=== PATIENT | male | born 1945 | race Caucasian/White ===

== ENCOUNTER → 2020-11-10 13:17 | Outpatient (BNVA) | payer MEDICARE, SELFPAY | PROVIDERS: Family Provider Internal Medicine; PCP Internal Medicine; Visit Provider Nurse Practitioner Family | DX: R30.0 Dysuria (principal); N40.0 Benign prostatic hyperplasia without lower urinary tract symptoms; N30.00 Acute cystitis without hematuria; N40.1 Benign prostatic hyperplasia with lower urinary tract symptoms; R35.1 Nocturia | CPT/HCPCS: 81000; 81003; 84153 ==

== ENCOUNTER → 2020-12-04 08:34 | Outpatient (BNVA) | payer MEDICARE, SELFPAY | PROVIDERS: Family Provider Internal Medicine; PCP Internal Medicine; Referring Provider Internal Medicine; Visit Provider Urology | DX: R97.20 Elevated prostate specific antigen [PSA] (principal); R33.9 Retention of urine, unspecified; N40.1 Benign prostatic hyperplasia with lower urinary tract symptoms; N39.0 Urinary tract infection, site not specified | CPT/HCPCS: 81003; 84153 ==

== ENCOUNTER 2021-01-12 07:51 | Outpatient (CLI) | payer MEDICARE, SELFPAY ==
--- NOTE | 2021-01-12 08:09 | CT_ITS ---
WS: [id number] CT HEAD TECHNIQUE: Noncontrast CT of the head obtained from the skullbase to the vertex. CLINICAL INFORMATION: G44.309 - Post-traumatic headache, unspecified, not intractable COMPARISON: None. DLP: 925.[address] scans at [facility] use at least one of these dose optimization techniques: automat ed exposure control; mA and/or kV adjustment per patient size (includes targeted exams where dose is matched to clinical indication); or iterative reconstruction. FINDINGS: No evidence of intracranial hemorrhage or mass effect. Ventricular system and basal cisterns are haney nt. Mild small vessel changes with mild parenchymal volume loss. No extra-axial fluid collections. No evidence of mass or mass effect. Normal crespo-white differentiation. Paranasal sinuses and mastoid air cells are well aerated. .Normal visualized soft tissues. CT/CT head wo con* [id number] IMPRESSION: 1. No evidence of intracranial hemorrhage or mass effect. 2. Mild small vessel changes. Mild parenchymal volume loss. 3. No acute intracranial findings.
== END 2021-01-12 07:52 | disposition home or self-care (01) ==
LOC: RADWPI 07:55
PROVIDERS: PCP Internal Medicine; Visit Provider Internal Medicine
DX: G44.309 Post-traumatic headache, unspecified, not intractable (principal)
CPT/HCPCS: 70450

== ENCOUNTER → 2021-03-11 08:44 | Outpatient (BNVA) | payer MEDICARE, SELFPAY | PROVIDERS: PCP Internal Medicine; Visit Provider Urology | DX: N40.1 Benign prostatic hyperplasia with lower urinary tract symptoms (principal); R97.20 Elevated prostate specific antigen [PSA]; R33.9 Retention of urine, unspecified | CPT/HCPCS: 81003; G0103 ==

== ENCOUNTER 2021-05-18 15:54 | Outpatient (CLI) | payer MEDICARE, SELFPAY ==
--- NOTE | 2021-05-18 15:59 | XR_ITS ---
WS: [id number] Chest 2 views, 05/18/2021 Clinical Data: chest pain Comparison: PA and lateral chest, 04/20/2016. Findings: No nodules, masses or effusions are seen. The heart is normal. The pulmonary vascularity is not increased. No pneumonia or pneumothorax is seen. The diaphragms are flattened. XR/XR chest 2V* [id number] Impression: Hyperinflation.
== END 2021-05-18 15:55 | disposition home or self-care (01) ==
PROVIDERS: PCP Internal Medicine; Visit Provider Internal Medicine
DX: R07.9 Chest pain, unspecified (principal)
CPT/HCPCS: 71046

== ENCOUNTER 2021-06-01 08:08 | Outpatient (CLI) | payer MEDICARE, SELFPAY ==
--- NOTE | 2021-06-01 08:31 | ECG_ITS ---
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 Interpretive Statements NAME OF STUDY: LEXISCAN SESTAMIBI STRESS TEST INDICATION: [Chest Pain, ] Procedure: At the baseline, the blood pressure was 132/82mmHg with a heart rate of 51 bpm. The electrocardiogram showed sinus bradycardia, normal axis with normal ST and T's. The Lexiscan was infused over a period of 20 seconds. A total of 0.4 mg of Lexiscan was infused. The stress phase was continued for a total of 5 minutes. Heart rate was at the end of stress phase was 59 bpm and a blood pressure of 122/60 mmHg. The EKG at the peak infusion revealed since normal sinus rhythm with no significant ST-T wave changes. Sestamibi was injected 20 seconds after the Lexiscan infusion. Blood pressure at the end of recovery phase was 112/59 mmHg with a heart rate of 58 bpm. Conclusion: 1. Normal EKG response to Lexiscan infusion 2. No Lexiscan induced chest pain or cardiac arrhythmia. 3. Normal blood pressure and heart rate response. 4. Sestamibi/sestamibi perfusion scan pending; see separate report. Electronically Signed On 06-28-2021 12:39:56 CDT by Jhony Mann M.D. [id number]
[2021-06-01 08:32] VITALS: BMI 25.0
--- NOTE | 2021-06-01 08:32 | NMCV_ITS ---
NM nando perf SPECT r/s* [id number] Neo Collins Age: 75 Gender: M : 1945 Exam Date: 06/01/2021 08:32 Ordering Phys: Angel Galicia MD Technologist: MIREYA Gonzalez Exam Location: [facility] Indications: CHEST PAIN STRESS TEST Please see separate stress test report in [facility]any for full findings IMAGE PROTOCOL Rest/Stress 1 Lexiscan Day Radiopharmaceutical Dose (mCi) Administration Site Administered by Rest: Tc-99m 11.0 IV MIREYA Gonzalez Sestamibi Stress:Tc-99m 32.9 IV MIREYA Harper Sestamibi Rest: 01-Jun-2021 60 Discovery 630 Stress: 01-Jun-2021 30 Discovery 630 0.4mg Lexiscan. Images obtained in supine and prone position. SPECT RESULTS Technical Quality: Excellent Raw Data Analysis: Normal Image Corrections: Patient motion artifact - motion correction applied to rest and stress images. Summed Stress Score: 6 Summed Rest Score: 2 Summed Difference Score: 5 PERFUSION FINDINGS There is a moderate in size, mostly reversible inferior wall, reversible perfusion defect. This is consistent with small infarct with significant joni- infarct ischemia. TID ratio is elevated FUNCTIONAL RESULTS (calculated via Gated SPECT) Stress Image LV EF (%): 69 Stress EDV (mL):142 TID: 1.23 Stress ESV (mL):44 FUNCTIONAL FINDINGS: There is normal left ventricular systolic function. IMPRESSIONS 1. Abnormal myocardial perfusion imaging with small sized inferior wall infarct with significant joni-infarct ischemia. 2. TID ratio is elevated and is 1.23. Subendocardial ischemia/multivessel disease are possible 3. LV systolic function is normal Jhony Mann MD (Electronically Signed) Final Date: 01 June 2021 12:06 S
[2021-06-01] MEDS: regadenoson 0.4 Mg/5 ml Syringe IVP (10:15)
[2021-06-01 10:52] VITALS: BP 112/59; PULSE 56
== END 2021-06-01 08:09 | disposition home or self-care (01) ==
LOC: CDL 08:15
PROVIDERS: PCP Internal Medicine; Visit Provider Internal Medicine
DX: R07.9 Chest pain, unspecified (principal)
CPT/HCPCS: 78452; 93017; A9500; J2785

== ENCOUNTER → 2021-07-06 10:29 | Outpatient (BNVA) | payer MEDICARE, SELFPAY | PROVIDERS: PCP Internal Medicine; Referring Provider Internal Medicine; Visit Provider Internal Medicine | DX: R07.9 Chest pain, unspecified (principal); Z01.818 Encounter for other preprocedural examination; Z20.822 Contact with and (suspected) exposure to COVID-19 | CPT/HCPCS: 80048; 85025; 85610; 87635 ==

== ENCOUNTER 2021-07-10 05:55 | Outpatient (CLI) | payer MEDICARE, SELFPAY ==
[2021-07-10] VITALS (23 sets, daily range): BP systolic 100–140; BP diastolic 58–72; PULSE 42–52; RESP 5–25; TEMP 36.8; O2SAT 93–98; BMI 24.9
--- NOTE | 2021-07-10 06:00 | XACV_ITS ---
Ht: 201 cm Wt: 100 kg BSA: 2.37 m2 Gender: Male : 1945 Any Known Allergies: No known allergies Exam Priority: Routine Procedure(s): Procedure Description: Diagnostic procedure Procedure Description: Left Heart Catheterization Procedure Description: Left ventriculography Procedure Description: Coronary Angiography Diagnostic Cath Status: Elective Diagnostic Findings * Indication: Chest pain/abnormal stress test. * No disease noted in the Left Main, Left Anterior Descending, Right, or Circumflex coronary arteries. * Coronary angiography shows right dominance. Conclusions 1. No disease noted in the Left Main, Left Anterior Descending, Right, or Circumflex coronary arteries. 2. Normal left ventricular systolic function. Ejection fraction of 50%. Recommendations * Aggressive risk factor management. * Cardiology office follow-up appointment in 4 weeks. Interventional RX Recommendation: medical therapy and/or counseling Diagnostic RX Recommendation: medical therapy and/or counseling Ventriculography Ejection Fraction: 50.0 % Pressures Phase:Rest AO : 118 / 48 ( 75 ) @ 6:58:00 AM 119 / 53 ( 78 ) @ 6:58:00 AM LV : 125 / -11 / 11 @ 6:56:00 AM 124 / -10 / 10 @ 6:58:00 AM 125 / -10 / 10 @ 6:58:00 AM Valves Phase:DefaultPhase AV : 3.0 @ 8:11:05 AM AV Mean Gradient: 7.0 @ 8:11:05 AM Clinical Evaluation EBL: 5mL-10mL Procedural Details Procedure Consent Obtained. Admit Source: Out Patient. Pre-Procedure Time Out. Identified patient by full name and date of as verbalized by the patient/guarantor. Does the consent match the physician's order: Yes. Accurate & Complete Informed Consent: Yes. Inpatient/Outpatient History & Physical on Chart: Yes. If H&P is completed, is and addenduem needed: No; If yes, is the addendum complete: N/A. Visualize and Verify Site with Patient/Guarantor: N/A. Relevant Radiology Images available: Yes. The risks, benefits, and alternatives of sedation and/or procedure were discussed by physician. The patient agrees to continue. Procedure started. [facility] Clinical Fraility Score: 2: Well. Inflated Pad Buffer Indications: Worsening Angina. Chest Pain Symptom Assessment: Atypical Angina. Cardiovascular Instability: No,. Correct patient, site and procedure confirmed by cath team. PERRLA. Strong, equal hand sanitarian inspector bilaterally. Lungs clear x 5 lobes. IV Site on Arrival: 20 gauge in the left anticubital. Pre Procedural Pulses: bilateral dorsalis pedis was 3+. Pre Procedural Pulses: bilateral radial was 3+. Oxygen started at 2liters/min via nasal canula. right groin was prepped with chloroprep then draped in the usual sterile fashion. Physician notified. Baseline sample Acquired. HR: 48 BPM. Physician arrived. Physician scrubbed in. Immediate Pre-Procedure Time Out. Correct Patient: Yes; Correct Procedure: Yes; Correct Site: Yes; Correct Patient Position: Yes; Correct Supplies: Yes; Dried Flammable Prep: Yes; Blood Products Available: N/A. Lidocaine 1% infiltrated to the right groin. Arterial access obtained with micropuncture set. A 5 israeli JL4 catheter in over wire. Multiple views taken of left coronary artery. Catheter out. A 5 israeli JR4 catheter in over wire. Multiple views taken of right coronary artery. Catheter out. A 5 israeli JR4 catheter in over wire. A 5 israeli Angled Pig catheter in over wire. LV gram performed in GOMEZ @ 10 mL/second for a total of 30 mL. EDP Sample taken: LV 124/-11,10; HR: 50 BPM; SpO2: 99%. Pullback taken: LV 125/-11,10; AO 118/48(75); Mean: 7mmHg, Peak to Peak: 3mmHg, SEP: 15sec/min; HR: 51 BPM; SpO2: 99%. Catheter out. A Right femoral angiogram was performed to determine safe placement of closure device. A Suture was successful obtaining hemostatsis at the Right Femoral artery insertion site. Patient's family updated. Physician scrubbed out. Post Procedure: Pulses reassessed and unchanged. PERRLA. Strong, equal hand sanitarian inspector bilaterally. No VTE prophylaxis required. Medication's Wasted: Lidocaine 1% = 12 mL. Medication's Wasted: Heparin = 4000 u. Estimated blood loss: 5mL-10mL. Total IV fluids: 50 mL. Procedure completed. Patient transferred by stretcher to 1st floor. Vital chart was stopped. Access Site Site: Right Femoral artery Sheath Size: 6 Fr Hemostasis Method: Suture Hemostasis Success: Successful Procedure Medications Start: 7:29 AM Stop: 7:29 AM Medication: Aspirin Amount: 325 mg Route: P.O. Start: 7:34 AM Stop: 7:34 AM Medication: Versed Amount: 1 mg Route: I.V. Start: 7:34 AM Stop: 7:34 AM Medication: Fentanyl Amount: 50 mcg Route: I.V. Start: 7:37 AM Stop: 7:37 AM Medication: Versed Amount: 1 mg Route: I.V. Start: 7:44 AM Stop: 7:44 AM Medication: Fentanyl Amount: 25 mcg Route: I.V. I, the attending physician, have reviewed and verified all procedure medications. Yes, all medications given per verbal order History/Risk Factors Hypertension: Yes Dyslipidemia: No Peripheral Arterial Disease (PAD): No Myocardial Infarction (MD): No Obesity: No Renal Disease: No Tobacco Use: Former Prior Interventions PCI: No CABG: No Valve Surgery: No Report Signatures Finalized by Jhony Mann MD on 07/26/2021 09:20 PM
[2021-07-10] MEDS: diphenhydrAMINE 50 mg Capsule PO (06:49)
--- NOTE | 2021-07-10 07:32 | W.PM.OPSFHP ---
Same Day Surgery H&P Indication for Procedure/HPI DATE OF PROCEDURE: July 10, 2021 CHIEF COMPLAINT/INDICATIONFOR SURGICAL PROCEDURE: Chest pain/abnormal stress test PREOP DIAGNOSIS: Chest pain/abnormal stress test PLANNED PROCEDRUE: Operation Date: 07/10/21 07:00 Proposed Procedures p Cardiac Catheterization(Left) - Jhony Mann M.D Possible percutaneous coronary intervention 75-year-old man with past medical history of atrial tachycardia was referred for evaluation of chest pain and abnormal stress test. According to patient he has been having on and off chest pain for the last 2 months. It is both exertional and at rest. Substernal in location. Also feels some epigastric discomfort. He underwent nuclear stress test that showed elevated TID ratio of 1.23 and there was inferior wall infarct with significant joni-infarct ischemia. ROS CONSTITUTIONAL: No fever chills weight loss or gain or night sweats. [] HEENT: Normocephalic, atraumatic.[] RESPIRATORY: No cough, sputum, hemoptysis or wheezing.[] CARDIOVASCULAR: No shortness of breath, chest pain, PND, orthopnea, lower extremity edema, presyncope or syncope. [] GI: no nausea vomiting diarrhea. [] FLAP PRESSER: No numbness, tingling, weakness or loss of function in any part of the body. [] MUSCULOSKELETAL: No knee or joint pain or rashes. [] Medications/Allergies* Home Medications Medication Instructions Recorded Confirmed Type multivitamin 1 tab PO DAILY 12/04/20 07/10/21 History omega-3 acid ethyl esters 1 gram 1 cap PO DAILY 12/04/20 07/10/21 History capsule polyethylene glycol 3350 17 17 g PO DAILY PRN 03/11/21 07/10/21 History gram/dose oral powder Allergies/Adverse Reactions Allergy/AdvReac Type Severity Reaction Status Date / Time No Known Allergies Allergy Verified 06/08/21 14:36 Pertinent History/Comorbid Conditions* Medical History (Updated 05/18/21 @ 15:37 by Angel Galicia MD) Acute UTI Atrial tachycardia Atypical chest pain BPH loc w urin obs/LUTS Elevated PSA Incomplete bladder emptying Family History (Updated 12/04/20 @ 08:42 by Jeny Rao LPN) Father, at age 83 Mother, at age 84 Aneurysm Mother Dementia Heart attack Father Stroke Father Denies family history of Diabetes Cancer Hypertension Social History Alcohol intake: current Alcohol intake frequency: few times a week Household members: spouse Housing: House Marital status: Current occupational status: retired History of recent travel: No Pertinent Exam Findings alert, oriented x 3, clear to auscultation bilaterally and regular rate & rhythm Conscious Sedation Assessment PATIENT ASSESSED PRIOR TO SEDATION, WITH NO CHANGE NOTED: Yes AIRWAY EVAL/ANESTHESIA PLAN: normal airway, see other exam findings, ASA III, Monitored Anesthesia, Local Anesthesia, Risks, benefits & alternatives of sedation and/or procedure discussed and Patient agrees to continue as planned Recommendations Surgery/Procedure today (Left heart cath with possible percutaneous coronary intervention) Coding Level of Care Code Acute Sales Assistant Institutional Sales for Dione Franco
--- NOTE | 2021-07-10 13:43 | PC.NURSE ---
At 0900 right femoral sheath was removed while simultaneously using manual pressure to site. No hematoma formation. Manual pressure heeld x 15 minutes. 2x2 gauze with opsite dressing. At 1300 patient walked in hallway with nurse. No pain reported and right groin site without bleeding or swelling. BP127/63
== END 2021-07-10 13:50 | disposition home or self-care (01) ==
LOC: CCL 06:01 → CSU 12:52
PROVIDERS: PCP Internal Medicine; Visit Provider Internal Medicine
DX: R07.89 Other chest pain (principal); R94.39 Abnormal result of other cardiovascular function study; N40.1 Benign prostatic hyperplasia with lower urinary tract symptoms; N13.8 Other obstructive and reflux uropathy; Z82.49 Family history of ischemic heart disease and other diseases of the circulatory system; Z82.3 Family history of stroke; I10 Essential (primary) hypertension; Z87.891 Personal history of nicotine dependence
CPT/HCPCS: 36415; 93452; C1769; C1887; C1894; J1644; J2250; J3010; J3490; J7030; Q0163; Q9967

== ENCOUNTER → 2021-08-03 13:02 | Outpatient (BNVA) | payer MEDICARE, SELFPAY | PROVIDERS: PCP Internal Medicine; Visit Provider Internal Medicine | DX: Z12.11 Encounter for screening for malignant neoplasm of colon (principal); Z20.822 Contact with and (suspected) exposure to COVID-19 | CPT/HCPCS: 87635 ==

== ENCOUNTER 2021-08-10 06:00 | Day surgery (SDC) | payer MEDICARE, SELFPAY ==
[2021-08-05 13:25] VITALS: BMI 24.9
[2021-08-10 06:23] VITALS: BP 117/66; PULSE 70; RESP 18; TEMP 36.1; O2SAT 95
[2021-08-10] MEDS: sodium chloride 0.9% 1,000 ML 30 ML IV (06:23)
--- NOTE | 2021-08-10 06:59 | ANES.PREANE2 ---
Pre-Anesthetic Assessment Pre-Anesthetic Assessment: Height/Weight: Height 6 ft 7 in Weight 100.244 kg Temp Pulse Resp BP Pulse Ox 97.0 F L 70 18 117/66 95 08/10/21 06:23 08/10/21 06:23 08/10/21 06:23 08/10/21 06:23 08/10/21 06:23 Preop Diagnosis: Chest pain/abnormal stress test Proposed Procedure: Operation Date: 08/10/21 07:00 Proposed Procedures p Colonoscopy 02089 Z12.11(Not Applicable) - Angel Galicia MD Was Beta Lorrie taken within 24 hours: N/A Was Clonidine taken within 24 hours: N/A Last intake: Intake Last Liquid Date 08/09/21 Last Solid Date 08/08/21 Social: Social History: Alcohol Exam: Pre-Anes Outpt Exam: alert, oriented x 3, clear to auscultation bilaterally and regular rate & rhythm Airway: Submandibular: WNL Cervical ROM: WNL MP: 1 Dentition: Partials Pulmonary: Pulmonary: None reported CV/HEM: CV/HEM: None reported : : None reported Hepatic: Hepatic: None reported GI: GI: None reported Metabolic: Metabolic: None reported Musc/skel: Musc/skel: None reported Neuropsych: Neuropsych: None reported Anesthetic Plan: ASA status: 2 Anesthesia: Anesthesia Evaluation and MAC Risk of > 500 ml blood loss (7ml/kg in children): No Meds/Allergies Current Medications: Current Medications Generic Name Dose Route Start Last Admin Trade Name Freq PRN Reason Stop Dose Admin Sodium Chloride 1,000 mls @ 30 ml s/hr 08/10/21 06:15 08/10/21 06:23 Sodium Chloride 0.9% IV 08/11/21 06:14 30 mls/hr .Q24H LISA Administration PFSH Anesthesia PFSH: Medical History Acute UTI Atrial tachycardia Atypical chest pain BPH loc w urin obs/LUTS Elevated PSA Incomplete bladder emptying Family History Mother , at age 84 Aneurysm Father , at age 83 Heart attack Stroke Other Dementia Denies family history of Diabetes Cancer Hypertension Social History Smoking and tobacco status: former smoker Alcohol intake: current Alcohol intake frequency: few times a week Household members: spouse Housing: House Marital status: Current occupational status: retired History of recent travel: No Data Anesthesia Cardiac Studies: No Data to Display
--- NOTE | 2021-08-10 07:06 | W.PM.OPSFHP ---
Same Day Surgery H&P Indication for Procedure/HPI DATE OF PROCEDURE: August 10, 2021 CHIEF COMPLAINT/INDICATIONFOR SURGICAL PROCEDURE: Screening PREOP DIAGNOSIS: Chest pain/abnormal stress test PLANNED PROCEDRUE: Operation Date: 08/10/21 07:00 Proposed Procedures p Colonoscopy 31561 Z12.11(Not Applicable) - Angel Galicia MD Medications/Allergies* Home Medications Medication Instructions Recorded Confirmed Type multivitamin 1 tab PO DAILY 12/04/20 08/10/21 History omega-3 acid ethyl esters 1 gram 1 cap PO DAILY 12/04/20 08/10/21 History capsule Allergies/Adverse Reactions Allergy/AdvReac Type Severity Reaction Status Date / Time No Known Allergies Allergy Verified 08/05/21 13:55 Current Medications: Generic Name Dose Route Start Last Admin Trade Name Freq PRN Reason Stop Dose Admin Sodium Chloride 1,000 mls @ 30 mls/hr 08/10/21 06:15 08/10/21 06:23 Sodium Chloride 0.9% IV 08/11/21 06:14 30 mls/hr .Q24H LISA Administration Pertinent History/Comorbid Conditions* Medical History (Updated 05/18/21 @ 15:37 by Angel Galicia MD) Acute UTI Atrial tachycardia Atypical chest pain BPH loc w urin obs/LUTS Elevated PSA Incomplete bladder emptying Family History (Updated 12/04/20 @ 08:42 by Jeny Rao LPN) Father, at age 83 Mother, at age 84 Aneurysm Mother Dementia Heart attack Father Stroke Father Denies family history of Diabetes Cancer Hypertension Social History Smoking and tobacco status: former smoker Alcohol intake: current Alcohol intake frequency: few times a week Household members: spouse Housing: House Marital status: Current occupational status: retired History of recent travel: No Pertinent Exam Findings alert, oriented x 3, clear to auscultation bilaterally, regular rate & rhythm, operative site marked and procedure specific exam findings Recommendations Surgery/Procedure today Coding Level of Care Code Acute Instrument Sterilizer for Dione Franco
[2021-08-10 07:22] VITALS: BP 107/68; PULSE 54; RESP 16; TEMP 36.1; O2SAT 94
[2021-08-10 07:40] VITALS: BP 98/67; PULSE 60; RESP 18; O2SAT 93
--- NOTE | 2021-08-10 12:16 | ANE.PACU2 ---
Inpatient post-anesthesia follow up: Airway intact: Yes Vital signs: Temperature 96.9 F Pulse Rate 60 Respiratory Rate 18 Blood Pressure 98/67 Pulse Oximetry 93 Oxygen Delivery Me thod Room Air Oxygen Flow Rate Fraction of Inspir ed Oxygen Hydration adequate: Yes Nausea and vomiting: No Pain level: 1 Mental status: Baseline
== END 2021-08-10 07:48 | disposition home or self-care (01) ==
PROVIDERS: PCP Internal Medicine; Visit Provider Internal Medicine
PROC: 0DJD8ZZ Inspection of Lower Intestinal Tract, Via Natural or Artificial Opening Endoscopic (ICD-10-PCS; CPT 45378; principal; 2021-08-10 07:00)
DX: Z12.11 Encounter for screening for malignant neoplasm of colon (principal); Z86.010 Personal history of colon polyps; K57.30 Diverticulosis of large intestine without perforation or abscess without bleeding; N40.1 Benign prostatic hyperplasia with lower urinary tract symptoms; N13.8 Other obstructive and reflux uropathy; Z82.49 Family history of ischemic heart disease and other diseases of the circulatory system; Z82.3 Family history of stroke
CPT/HCPCS: 96360; G0121; J2704; J7030

== ENCOUNTER → 2021-09-08 09:07 | Outpatient (BNVA) | payer MEDICARE, SELFPAY | PROVIDERS: PCP Internal Medicine; Visit Provider Urology | DX: N40.1 Benign prostatic hyperplasia with lower urinary tract symptoms (principal); R97.20 Elevated prostate specific antigen [PSA]; R33.9 Retention of urine, unspecified | CPT/HCPCS: 81003; 84153 ==

== ENCOUNTER 2022-01-11 13:42 | Outpatient (CLI) | payer MEDICARE, SELFPAY ==
--- NOTE | 2022-01-11 | US_ITS ---
WS: [id number] ULTRASOUND BREAST RIGHT TECHNIQUE: Ultrasound right breast focused area of concern. CLINICAL INFORMATION: Painful right breast. COMPARISON: None. FINDINGS: Ultrasound RIGHT breast at the areola. Comparison LEFT breast. Dense shadowing tissue deep to the RIGHT areola typical for gynecomastia. No well-circumscribed cysti c or solid lesions. Comparison LEFT breast is similar in appearance. Findings have a benign appearanc e. US/US breast RT complete [id number] IMPRESSION: Dense shadowing tissue deep to the RIGHT areola typical for gynecomastia.
== END 2022-01-11 13:43 | disposition home or self-care (01) ==
PROVIDERS: PCP Internal Medicine; Visit Provider Internal Medicine
DX: N64.4 Mastodynia (principal)
CPT/HCPCS: 76641

== ENCOUNTER 2022-03-18 10:32 | Outpatient (CLI) | payer MEDICARE, SELFPAY | END 2022-03-18 10:33 | disposition home or self-care (01) | PROVIDERS: PCP Internal Medicine; Visit Provider Urology | DX: R97.20 Elevated prostate specific antigen [PSA] (principal) | CPT/HCPCS: 84153 ==

== ENCOUNTER → 2022-03-19 10:26 | Outpatient (BNVA) | payer MEDICARE, SELFPAY | PROVIDERS: PCP Internal Medicine; Visit Provider Urology | DX: N40.1 Benign prostatic hyperplasia with lower urinary tract symptoms (principal); R97.20 Elevated prostate specific antigen [PSA] | CPT/HCPCS: 51741; 51798; 99213 ==

== ENCOUNTER 2022-07-31 05:25 | Emergency (ER) | payer MEDICARE, SELFPAY ==
[2022-07-31 05:27] VITALS: BP 93/55; PULSE 58; RESP 18; TEMP 37.1; O2SAT 96; BMI 25.7
--- NOTE | 2022-07-31 05:35 | XRR_ITS ---
PROCEDURE INFORMATION: Exam: XR Left Forearm Exam date and time: 07/31/2022 5:37 AM Age: 77 years old Clinical indication: Injury or trauma; Fall; Laceration; Arm, lower; Left TECHNIQUE: Imaging protocol: Radiologic exam of the Left forearm. Views: 2 views. COMPARISON: No relevant prior studies available. FINDINGS: Bones/joints: Slight irregularity of the distal ulna, age indeterminate. Correlation with wrist radiographs is recommended. Soft tissues: Soft tissue laceration noted along the medial proximal forearm. No radiopaque foreign body. XR/XR forearm LT 2V [id number] IMPRESSION: 1. Soft tissue laceration noted along the medial proximal forearm. No radiopaque foreign body. 2. Slight irregularity of the distal ulna, age indeterminate. Correlation with wrist radiographs is recommended.
--- NOTE | 2022-07-31 06:02 | ECG_ITS ---
[facility] Test Date: 2022-07-31 Pat Name: Neo Collins Department: Room: Gender: Male Re Dye Hand: : 1945 Requested By: David Morales Order Number: [id number] Kathryn MD: Jhony Mann M.D. Measurements Intervals [place] Rate: 54 P: 84 MA: 196 QRS: 14 QRSD: 103 T: 21 QT: 424 QTc: 402 Interpretive Statements SINUS BRADYCARDIA WITH OCCASIONAL SUPRAVENTRICULAR PREMATURE COMPLEXES No previous ECG available for comparison Electronically Signed On 08-01-2022 22:01:35 CDT by Jhony Mann M.D. [id number]
[2022-07-31] MEDS: sodium chloride 0.9% 1,000 ML 999 ML IV (06:13)
[2022-07-31 06:15] LABS: Basophils % 0.8 %; Eosinophils # 0.1 10^3/uL (0.0-0.8); Eosinophils % 2.6 %; Hematocrit 43.2 % (42.0-52.0); Hemoglobin 14.6 g/dL (11.7-16.6); Lymphocytes # 1.9 10^3/uL (0.8-4.8); Lymphocytes % 37.7 %; Mean Corpuscular HGB Conc 33.8 g/dL (30.0-36.0); Mean Corpuscular Volume 97.5 fl (80-94); Mean Platelet Volume 10.5 fL (7.4-10.4); Monocytes # 0.5 10^3/uL (0.2-0.9); Monocytes % 10.5 %; Neutrophils # 2.35 10^3/uL (1.8-7.7); Neutrophils % 47.6 %; Nucleated Red Blood Cells % 0 %; Platelet Count 187 10^3/cmm (130-400); Red Blood Count 4.43 10^6/uL (4.1-5.3); Red Cell Distribution Width 12.6 % (12.1-15.1); White Blood Count 4.9 10^3/uL (4.0-10.0)
[2022-07-31 06:21] VITALS: BP 101/57; PULSE 58; RESP 17; O2SAT 96
--- NOTE | 2022-07-31 06:26 | W.ED.WOUNDLC ---
HPI - Wound/Laceration General: Chief Complaint: Wound/Laceration Stated Complaint: fall , left arm injury Time Seen by Provider: 07/31/22 05:31 History of Present Illness: 77-year-old male presenting with laceration to his left forearm. Patient notes he was standing up this morning to urinate. When he lost his balance. Falling over and striking the shower door. Noted significant pain to his left forearm. Bleeding at the time. He noted no chest pain or shortness of breath. He denies any abdominal pain. Denies dysuria or polyuria. He denies black or bloody stools. Takes no blood pressure medications. Takes Flomax daily for prostate issues. Review of Systems General: Reports: 10 or more systems reviewed and unremarkable except in HPI and below PFSH ED PFSH: Medical History Acute UTI Atrial tachycardia Atypical chest pain BPH loc w urin obs/LUTS Elevated PSA Incomplete bladder emptying Family History Mother , at age 84 Aneurysm Father , at age 83 Heart attack Stroke Other Dementia Denies family history of Diabetes Cancer Hypertension Social History Smoking and tobacco status: former smoker Alcohol intake: current Alcohol intake frequency: few times a week Household members: spouse Housing: House Marital status: Current occupational status: retired History of recent travel: No Physical Exam Const: COMMON NORMALS: no acute distress, patient oriented x3 and alert GENERAL APPEARANCE: cooperative ORIENTATION/CONSCIOUSNESS: Yes awake, Yes oriented to person, Yes oriented to place and Yes oriented to time HENMT: COMMON NORMALS: normocephalic, atraumatic, external ears normal, Normal external nose present and moist oral mucous membranes HEAD & SCALP: normal to inspection, normocephalic and atraumatic NOSE: Normal external nose present GENERAL EAR: hearing grossly impaired EXTERNAL EAR: Yes external ears normal Eye: COMMON NORMALS: Equal, round and reactive pupils present, EOMs intact bilaterally, conjunctivae normal and no scleral icterus GENERAL EYE: appearance normal, both eyes and all related structures EYELID: eyelids normal CONJUNCTIVA: Yes conjunctivae normal SCLERA: sclerae normal PUPIL: Yes Equal, round and reactive pupils present Neck/C-Spine: COMMON NORMALS: full ROM, supple and no JVD GENERAL: Yes normal visual inspection Lymph: LYMPHATIC: no lymphadenopathy noted and no lymphedema noted Chest: COMMONS NORMALS: normal inspection of the chest Resp: COMMON NORMALS: normal respiratory effort, No retractions and No use of accessory muscles Cardio: COMMON NORMALS: no JVD, regular rate and regular rhythm RATE: regular rate RHYTHM: regular rhythm GI: COMMON NORMALS: Normal to inspection, nondistended, normoactive bowel sounds present : COMMON NORMALS: Yes no CVA tenderness BLADDER/KIDNEY EXAM: Yes no CVA tenderness Back/Pelvis: COMMON NORMALS: no CVA tenderness and thoracic and lumbar spine normal to inspection Extremity: COMMON NORMALS: normal to inspection, full ROM and capillary refill normal GENERAL: Yes normal exam except as noted Neuro: COMMON NORMALS: patient oriented x3, CN's II-XII intact bilaterally, moves all extremities, no focal motor deficits, no sensory deficits noted and gait normal SENSORIUM/ORIENTATION: Yes alert, Yes oriented to person, Yes oriented to place and Yes oriented to time Psych: COMMON NORMALS: mental status grossly normal, Normal thought process present, cooperative and normal affect THOUGHT PROCESS: Normal thought process present Skin: COMMON NORMALS: no rashes or lesions noted and no wounds GENERAL SKIN EXAM: no rashes or lesions noted Procedures Laceration Laceration 1: Site: upper extremity Side (If applicable): left Size (cm): 10 Description: linear Depth: simple, single layer Local Anesthetic: lidocaine 1% and with epi Amount of anesthesia used (mL): 5 Skin layer closed with: nylon Size (cm): 3-0 Number of sutures: 5 Technique: simple, interrupted Course Vital Signs: Vital signs: Vital Signs Temperature 98.8 F 07/31/22 05:27 Pulse Rate 58 L 07/31/22 06:21 Respiratory Rate 17 07/31/22 06:21 Blood Pressure 101/57 07/31/22 06:21 Pulse Oximetry 96 07/31/22 06:21 Oxygen Delivery Me thod 07/31/22 06:21 MDM - Wound/Laceration Medical Decision Making 77-year-old male presenting with laceration to left forearm. Initially with hypotension and bradycardia. Patient bolused normal saline with improvement in blood pressure. Bradycardia appears to be patient's baseline. Patient alert and oriented without any specific complaints. CBC is unremarkable. CMP is unremarkable. Troponin is unremarkable. EKG was sinus bradycardia. Laceration repair as noted. Patient was given strict return precautions and recommended routine outpatient follow-up. Lab Data : 07/31/22 06:10 07/31/22 06:10 Laboratory Results WBC 4.9 10^3/uL (4.0-10.0) 07/31/22 06:10 RBC 4.43 10^6/uL (4.1-5.3) 07/31/22 06:10 Hgb 14.6 g/dL (11.7-16.6) 07/31/22 06:10 Hct 43.2 % (42.0-52.0) 07/31/22 06:10 MCV 97.5 fl (80-94) H 07/31/22 06:10 MCH 33.0 pg (28.0-34.0) 07/31/22 06:10 MCHC 33.8 g/dL (30.0-36.0) 07/31/22 06:10 RDW 12.6 % (12.1-15.1) 07/31/22 06:10 Plt Count 187 10^3/cmm (130-400) 07/31/22 06:10 MPV 10.5 fL (7.4-10.4) H 07/31/22 06:10 Neut % (Auto) 47.6 % 07/31/22 06:10 Lymph % (Auto) 37.7 % 07/31/22 06:10 [place] % (Auto) 10.5 % 07/31/22 06:10 Eos % (Auto) 2.6 % 07/31/22 06:10 Baso % (Auto) 0.8 % 07/31/22 06:10 Neut # (Auto) 2.35 10^3/uL (1.8-7.7) 07/31/22 06:10 Lymph # (Auto) 1.9 10^3/uL (0.8-4.8) 07/31/22 06:10 [place] # (Auto) 0.5 10^3/uL (0.2-0.9) 07/31/22 06:10 Eos # (Auto) 0.1 10^3/uL (0.0-0.8) 07/31/22 06:10 Baso # (Auto) 0.0 10^3/uL (0.0-0.1) 07/31/22 06:10 Nucleated RBC % (auto) 0 % 07/31/22 06:10 Nucleated RBCs # 0.0 /100WBC 07/31/22 06:10 Discharge Plan Discharge Patient Disposition: Home Clinical Impression: Laceration of forearm Condition: Stable Prescriptions: No Action omega-3 acid ethyl esters 1 gram capsule 1 cap PO DAILY multivitamin Tablet 1 tab PO DAILY tamsulosin 0.4 mg capsule 0.8 mg PO .hs Qty: 180 3RF finasteride 5 mg tablet See Rx Instructions .ROUTE .COMPLEX Qty: 90 3RF Dose Instruction: TAKE 1 TABLET DAILY Rx Instructions: TAKE 1 TABLET DAILY ciprofloxacin HCl [Cipro] 500 mg tablet 500 mg PO Q12H 5 Days Qty: 10 0RF Discharge Orders: Discharge ED (Routine); Ordered 07/31/22 Ordered By: David Morales Referrals: Angel Galicia MD [Primary Care Provider] - Patient Instructions: Laceration (ED) Coding Level of Care Code ED Notary Public for Dione Franco
[2022-07-31 06:43] LABS: Alanine Aminotransferase 16 U/L (0-41); Albumin Level 3.8 g/dL (3.5-5.2); Alkaline Phosphatase 34 U/L (40-130); Anion Gap 10.6 (5-19); Aspartate Amino Transferase 19 U/L (0-40); Blood Urea Nitrogen 16 mg/dL (8-23); Calcium 8.8 mg/dL (8.5-10.5); Carbon Dioxide 26 mmol/L (22-29); Chloride 96 mmol/L (98-107); Globulin 3.1 g/dL (1.3-4.6); Glucose 89 mg/dL (65-115); Osmolality Calculated 269 mOsm/kg (285-295); Potassium 3.6 mmol/L (3.5-5.1); Sodium 129 mmol/L (136-145); Total Bilirubin 0.5 mg/dL (0.15-1.2); Total Protein 6.9 g/dL (6.6-8.7); Troponin(5th) Baseline 8 ng/L (0-15)
[2022-07-31 07:08] VITALS: BP 101/57; PULSE 58; O2SAT 96
== END 2022-07-31 07:11 | disposition home or self-care (01) ==
PROVIDERS: Emergency Provider Emergency Medicine; PCP Internal Medicine
DX: S51.812A Laceration without foreign body of left forearm, initial encounter (principal); Z87.891 Personal history of nicotine dependence; W18.39XA Other fall on same level, initial encounter
CPT/HCPCS: 12004; 73090; 80053; 84484; 85025; 93005; 96360; 99285; J7030

== ENCOUNTER 2022-11-04 12:44 | Outpatient (CLI) | payer MEDICARE, SELFPAY ==
[2022-11-04 13:57] LABS: Prostate Specific AG Urology 3.66 ng/mL (0-4)
== END 2022-11-04 12:45 | disposition home or self-care (01) ==
PROVIDERS: Urology; PCP Internal Medicine; Visit Provider Nurse Practitioner Family
DX: R97.20 Elevated prostate specific antigen [PSA] (principal)
CPT/HCPCS: 36415; 84153

== ENCOUNTER → 2022-11-09 13:14 | Outpatient (BNVA) | payer MEDICARE, SELFPAY | PROVIDERS: PCP Internal Medicine; Visit Provider Urology | DX: N40.1 Benign prostatic hyperplasia with lower urinary tract symptoms (principal); R97.20 Elevated prostate specific antigen [PSA] | CPT/HCPCS: 51798; 81003; 99213 ==

== ENCOUNTER 2023-04-12 10:34 | Outpatient (CLI) | payer MEDICARE, SELFPAY | END 2023-04-12 10:35 | disposition home or self-care (01) | PROVIDERS: PCP Family Medicine; Visit Provider Urology | DX: R97.20 Elevated prostate specific antigen [PSA] (principal) | CPT/HCPCS: 36415; 84153 ==

== ENCOUNTER 2023-11-01 09:33 | Outpatient (CLI) | payer MEDICARE, SELFPAY ==
[2023-11-01 10:25] LABS: Prostate Specific Antigen < 0.014 ng/mL (0-4)
== END 2023-11-01 09:34 | disposition home or self-care (01) ==
LOC: LAB 09:39
PROVIDERS: PCP Family Medicine; Visit Provider Urology
DX: C61 Malignant neoplasm of prostate (principal)
CPT/HCPCS: 36415; 84153

== ENCOUNTER 2024-01-05 10:49 | Outpatient (CLI) | payer MEDICARE, SELFPAY ==
[2024-01-05 12:13] LABS: Prostate Specific Antigen < 0.014 ng/mL (0-4)
== END 2024-01-05 10:50 | disposition home or self-care (01) ==
LOC: LAB 10:54
PROVIDERS: PCP Family Medicine; Visit Provider Urology
DX: C61 Malignant neoplasm of prostate (principal)
CPT/HCPCS: 36415; 84153

== ENCOUNTER 2024-04-06 09:42 | Outpatient (CLI) | payer MEDICARE, SELFPAY ==
[2024-04-06 12:02] LABS: Prostate Specific Antigen < 0.014 ng/mL (0-4)
== END 2024-04-06 09:43 | disposition home or self-care (01) ==
LOC: LAB 09:43
PROVIDERS: PCP Family Medicine; Visit Provider Urology
DX: N39.3 Stress incontinence (female) (male) (principal)
CPT/HCPCS: 84153

== ENCOUNTER → 2024-05-09 15:30 | Outpatient (BNVA) | payer MEDICARE, SELFPAY | PROVIDERS: PCP Family Medicine; Visit Provider Nurse Practitioner Family | DX: D48.5 Neoplasm of uncertain behavior of skin (principal); L57.0 Actinic keratosis; L81.4 Other melanin hyperpigmentation; D22.5 Melanocytic nevi of trunk | CPT/HCPCS: 11102; 17000; 99203 ==

== ENCOUNTER → 2024-06-12 07:46 | Outpatient (BNVA) | payer MEDICARE, SELFPAY | PROVIDERS: PCP Family Medicine; Visit Provider Dermatology | DX: C44.01 Basal cell carcinoma of skin of lip (principal); L57.0 Actinic keratosis | CPT/HCPCS: 14060; 17000; 17311 ==

== ENCOUNTER 2024-11-06 10:04 | Outpatient (CLI) | payer MEDICARE, SELFPAY ==
[2024-11-06 11:01] LABS: Prostate Specific Antigen < 0.014 ng/mL (0-4)
== END 2024-11-06 10:05 | disposition home or self-care (01) ==
LOC: LAB 10:08
PROVIDERS: PCP Family Medicine; Visit Provider Urology
DX: C61 Malignant neoplasm of prostate (principal)
CPT/HCPCS: 36415; 84153

== ENCOUNTER → 2024-11-09 10:52 | Outpatient (BNVA) | payer MEDICARE, SELFPAY | PROVIDERS: PCP Family Medicine; Visit Provider Nurse Practitioner Family | DX: L81.4 Other melanin hyperpigmentation (principal); L57.8 Other skin changes due to chronic exposure to nonionizing radiation; Z08 Encounter for follow-up examination after completed treatment for malignant neoplasm; Z85.828 Personal history of other malignant neoplasm of skin; L57.0 Actinic keratosis | CPT/HCPCS: 17000; 99213 ==

== ENCOUNTER 2025-05-08 13:26 | Outpatient (CLI) | payer MEDICARE, SELFPAY ==
[2025-05-08 14:42] LABS: Prostate Specific Antigen < 0.014 ng/mL (0-4)
== END 2025-05-08 13:27 | disposition home or self-care (01) ==
LOC: LAB 13:27
PROVIDERS: PCP Family Medicine; Visit Provider Urology
DX: C61 Malignant neoplasm of prostate (principal)
CPT/HCPCS: 36415; 84153

== ENCOUNTER → 2025-05-22 13:17 | Outpatient (BNVA) | payer MEDICARE, SELFPAY | PROVIDERS: PCP Family Medicine; Visit Provider Nurse Practitioner Family | DX: L82.1 Other seborrheic keratosis (principal); L57.8 Other skin changes due to chronic exposure to nonionizing radiation; L81.4 Other melanin hyperpigmentation; Z08 Encounter for follow-up examination after completed treatment for malignant neoplasm; Z85.828 Personal history of other malignant neoplasm of skin; L57.0 Actinic keratosis | CPT/HCPCS: 17000; 99213 ==